=== PATIENT | male | born 1970 | race Caucasian/White ===

== ENCOUNTER → 2019-07-28 | Outpatient (CLI) | payer BC | END | disposition home or self-care (01) | LOC: LABWHC1 08:35 | PROVIDERS: ATTEND Surgery | DX: Z11.59 Encounter for screening for other viral diseases (principal) ==

== ENCOUNTER 2019-07-31 06:44 | Day surgery (SDC) | payer BC ==
[2019-07-29 12:25] VITALS: BMI 36.6
[~2019-07-31 06:44] MED LIST: LACTATED RINGERS 1,000 ML IV SCH
[2019-07-31 06:59] VITALS: TEMP 97.8
[2019-07-31] MEDS ORDERED: LIDOCAINE 1% (10MG/ML) FOR IV START INTRADERMA ONE (07:00)
[2019-07-31] MEDS ORDERED: LACTATED RINGERS 1,000 ML IV ONE (07:00)
[2019-07-31 07:07] LABS: Glucose,Whole Blood 91 mg/dL (75-99)
[2019-07-31] MEDS ORDERED: PROPOFOL 10 MG/ML 20 ML VIAL IV ONE (07:44)
--- NOTE | 2019-07-31 07:51 | P.GSHP ---
History of Present Illness H&P Date: 07/31/19 Chief Complaint: Screening colonoscopy This 49-year-old male who presents today for screening colonoscopy. Patient has never had a colonoscopy before. Past Medical History Past Medical History: Diabetes Mellitus, Hyperlipidemia, Hypertension, Skin Disorder Additional Past Medical History / Comment(s): PSOROISIS History of Any Multi-Drug Resistant Organisms: None Reported Past Surgical History: Orthopedic Surgery Additional Past Surgical History / Comment(s): left shoulder surgery, ear surgery Past Anesthesia/Blood Transfusion Reactions: No Reported Reaction Smoking Status: Current every day smoker - Past Family History Mother Family Medical History: Cancer Medications and Allergies Home Medications Medication Instructions Recorded Confirmed Type Lisinopril [Zestril] 10 mg PO QAM 02/03/15 07/29/19 History Levothyroxine Sodium [Synthroid] 50 mcg PO DAILY 06/26/17 07/29/19 History metFORMIN HCL ER [Glucophage Xr] 500 mg PO AC-SUPPER 06/26/17 07/29/19 History Atorvastatin [Lipitor] 20 mg PO HS 07/29/19 07/29/19 History Betamethasone Dipropionate 1 applic TOPICAL DAILY 07/29/19 07/29/19 History [Betamethasone Dipropionate 0.05%] Fenofibrate Nanocrystallized 145 mg PO DAILY 07/29/19 07/29/19 History [Fenofibrate] Allergies Allergy/AdvReac Type Severity Reaction Status Date / Time amoxicillin trihydrate Allergy Rash/Hives Verified 07/29/19 12:13 [From Augmentin] potassium clavulanate Allergy Rash/Hives Verified 07/29/19 12:13 [From Augmentin] Surgical - Exam Vital Signs Temp Pulse Resp BP Pulse Ox 97.8 F 62 18 133/71 97 07/31/19 06:58 07/31/19 06:58 07/31/19 06:58 07/31/19 06:58 07/31/19 06:58 - General well developed, well nourished, no distress - Eyes PERRL - ENT normal pinna - Neck no masses - Respiratory normal expansion - Cardiovascular Rhythm: regular - Abdomen Abdomen: soft, non tender Assessment and Plan Assessment: We'll perform screening colonoscopy.
--- NOTE | 2019-07-31 08:07 | P.OP ---
Date of Procedure: 07/31/19 Preoperative Diagnosis: Screening colonoscopy Postoperative Diagnosis: Right colon polyp, rectal polyp Internal and external hemorrhoids Procedure(s) Performed: Colonoscopy Anesthesia: MAC Surgeon: Roger Guidry Pathology: other (Colon polyps) Condition: stable Disposition: PACU Description of Procedure: The patient's placed on the endoscopy table in the lateral position. He received IV sedation. Digital rectal exam was performed which revealed no abnormalities. The clot scope was then placed patient anus and passed throughout the entire colon. The ileocecal valve was seen. The cecum appeared normal. In the ascending colon there was a polyp seen this removed with the snare. The remainder the ascending colon transverse colon and descending colon appeared normal. The sigmoid colon was normal. In the rectum another polyp was seen this removed with a snare. Another sessile polyp was removed the old forcep. Scope was withdrawn and there a few internal and external hemorrhoids noted. Scope was withdrawn for patient..
[2019-07-31 08:11] VITALS: RESP 16
[2019-07-31 08:21] LABS: Glucose,Whole Blood 95 mg/dL (75-99)
[2019-07-31 08:41] VITALS: BP 132/88; PULSE 77
== END 2019-07-31 08:55 | disposition home or self-care (01) ==
LOC: ORWHC2ENDO 06:44
PROVIDERS: ATTEND Surgery
DX: Z12.11 Encounter for screening for malignant neoplasm of colon (principal); D12.2 Benign neoplasm of ascending colon; D12.8 Benign neoplasm of rectum; K64.4 Residual hemorrhoidal skin tags; K64.8 Other hemorrhoids; I10 Essential (primary) hypertension; E11.9 Type 2 diabetes mellitus without complications; E78.5 Hyperlipidemia, unspecified; L40.9 Psoriasis, unspecified; F17.200 Nicotine dependence, unspecified, uncomplicated; Z88.0 Allergy status to penicillin; Z79.890 Hormone replacement therapy; Z79.84 Long term (current) use of oral hypoglycemic drugs; Z79.899 Other long term (current) drug therapy; Z98.890 Other specified postprocedural states; Z80.9 Family history of malignant neoplasm, unspecified
CPT/HCPCS: 45385; 45380; 88305; J2704

== ENCOUNTER 2020-10-27 07:40 | Day surgery (SDC) | payer BC ==
[2020-10-25 13:38] VITALS: BMI 38.0
[~2020-10-27 07:40] MED LIST changes: +LIDOCAINE 1% (10MG/ML) FOR IV START INTRADERMA PRN; +MIDAZOLAM 2 MG/2 ML VIAL IV PRN
[2020-10-27 08:08] VITALS: TEMP 96.8
[2020-10-27 08:09] LABS: Glucose,Whole Blood 100 mg/dL (75-99)
[2020-10-27] MEDS ORDERED: PROPOFOL 10 MG/ML 20 ML VIAL IV ONE (08:41)
--- NOTE | 2020-10-27 08:45 | P.GSHP ---
History of Present Illness H&P Date: 10/27/20 Chief Complaint: History of colon polyps This is a 50-year-old male who is previous history of colon polyps. Patient rents today for repeat colonoscopy. Patient denies any significant GI complaints. Past Medical History Past Medical History: Diabetes Mellitus, Hyperlipidemia, Hypertension Additional Past Medical History / Comment(s): psoriasis History of Any Multi-Drug Resistant Organisms: None Reported Past Surgical History: Orthopedic Surgery Additional Past Surgical History / Comment(s): left shoulder surgery, ear surgery,colonoscopy Past Anesthesia/Blood Transfusion Reactions: No Reported Reaction Smoking Status: Current every day smoker - Past Family History Mother Family Medical History: Cancer Medications and Allergies Home Medications Medication Instructions Recorded Confirmed Type Lisinopril [Zestril] 10 mg PO QAM 02/03/15 10/27/20 History Levothyroxine Sodium [Synthroid] 50 mcg PO QAM 06/26/17 10/27/20 History metFORMIN HCL ER [Glucophage XR] 500 mg PO AC-SUPPER 06/26/17 10/27/20 History Atorvastatin [Lipitor] 20 mg PO HS 07/29/19 10/27/20 History Betamethasone Dipropionate 1 applic TOPICAL DAILY PRN 07/29/19 10/27/20 History [Betamethasone Dipropionate 0.05%] Fenofibrate Nanocrystallized 145 mg PO DAILY 07/29/19 10/27/20 History [Fenofibrate] Allergies Allergy/AdvReac Type Severity Reaction Status Date / Time No Known Allergies Allergy Verified 10/27/20 07:54 Surgical - Exam Vital Signs Temp Pulse Resp BP Pulse Ox 96.8 F L 67 16 130/78 96 10/27/20 08:02 10/27/20 08:02 10/27/20 08:02 10/27/20 08:02 10/27/20 08:02 - General well developed, well nourished, no distress - Eyes PERRL - ENT normal pinna - Neck no masses - Respiratory normal expansion - Cardiovascular Rhythm: regular - Abdomen Abdomen: soft, non tender Results - Labs Abnormal Lab Results - Last 24 Hours (Table) 10/27/20 Range/Units 08:03 POC Glucose (mg/dL) 100 H (75-99) mg/dL Assessment and Plan Assessment: History of colon polyps. We'll perform colonoscopy.
--- NOTE | 2020-10-27 09:01 | P.OP ---
Date of Procedure: 10/27/20 Preoperative Diagnosis: History of colon polyps Postoperative Diagnosis: Transverse colon and right colon polyp Procedure(s) Performed: Colonoscopy Anesthesia: MAC Surgeon: Roger Guidry Pathology: other (Transverse and right colon polyp) Condition: stable Disposition: PACU Description of Procedure: The patient's placed on the endoscopy table in the lateral position. She received IV sedation. Digital rectal exam was performed which revealed no abnormalities. The flexible colonoscope was then placed patient anus and passed throughout the entire colon. The ileocecal valve was visualized. The cecum appeared normal. In the right colon there was a sessile polyp was removed with a cold forcep. Scope was withdrawn remainder the ascending colon year normal. In the transverse colon another sessile polyp was removed forcep. Scope withdrawn the remainder transverse colon, descending colon and sigmoid colon appeared normal. Scope was brought back the rectum this appeared normal. Scope was withdrawn for patient.
[2020-10-27 09:21] VITALS: BP 109/70; PULSE 60; RESP 20
== END 2020-10-27 09:51 | disposition home or self-care (01) ==
LOC: ORWHC2ENDO 07:40
PROVIDERS: ATTEND Surgery
DX: Z12.11 Encounter for screening for malignant neoplasm of colon (principal); Z86.010 Personal history of colon polyps; D12.2 Benign neoplasm of ascending colon; D12.3 Benign neoplasm of transverse colon; I10 Essential (primary) hypertension; E78.5 Hyperlipidemia, unspecified; F17.210 Nicotine dependence, cigarettes, uncomplicated; E11.9 Type 2 diabetes mellitus without complications; L40.9 Psoriasis, unspecified; Z79.899 Other long term (current) drug therapy
CPT/HCPCS: 88305; 45380; J2704

== ENCOUNTER → 2023-06-21 | Outpatient (CLI) | payer BC ==
[2023-06-21 19:22] LABS: Hepatitis B Surface AB- Quant 3.5 mIU/mL
[2023-06-21 19:37] LABS: Hepatitis B Surface Antigen Nonreactive (Nonreactive); Hepatitis C IgG Antibody Nonreactive (Nonreactive)
== END | disposition home or self-care (01) ==
LOC: LABWHC1 16:12
PROVIDERS: ATTEND Dermatology MOHS-Micrographic Surgery
DX: L40.0 Psoriasis vulgaris (principal); Z79.899 Other long term (current) drug therapy
CPT/HCPCS: 36415; 84450; 84460; 84478; 86480; 86704; 86706; 86803; 87340

== ENCOUNTER → 2023-08-20 | Outpatient (CLI) | payer BC ==
[2023-08-20 15:35] LABS: Hepatitis B Surface AB- Quant 3.5 mIU/mL
[2023-08-20 15:38] LABS: Hepatitis B Surface Antigen Nonreactive (Nonreactive); Hepatitis C IgG Antibody Nonreactive (Nonreactive)
== END | disposition home or self-care (01) ==
LOC: LABWHC1 08:54
PROVIDERS: ATTEND Nurse Practitioner Family
DX: L40.0 Psoriasis vulgaris (principal); Z79.899 Other long term (current) drug therapy
CPT/HCPCS: 36415; 84450; 84460; 84478; 86480; 86704; 86706; 86803; 87340

== ENCOUNTER 2023-11-25 12:20 | Day surgery (SDC) | payer BC ==
[~2023-11-25 12:20] MED LIST changes: -LACTATED RINGERS 1,000 ML IV SCH; -MIDAZOLAM 2 MG/2 ML VIAL IV PRN
[2023-11-25 12:45] VITALS: TEMP 97.5
[2023-11-25 13:00] LABS: Glucose,Whole Blood 115 mg/dL (70-110)
[2023-11-25] MEDS: LACTATED RINGERS 1,000 ML IV SCH (13:00)
[2023-11-25] MEDS: IV FLUID CONTINUATION 1,000 ML IV ONE (13:01)
[2023-11-25] MEDS ORDERED: PROPOFOL 10 MG/ML 20 ML VIAL IV ONE (14:18)
--- NOTE | 2023-11-25 14:44 | P.GSHP ---
History of Present Illness H&P Date: 11/25/23 Chief Complaint: Colon polyps Is a 53 male with history of colon polyps. Patient notes today for colonoscopy. Past Medical History Past Medical History: Diabetes Mellitus, Hyperlipidemia, Hypertension, Skin Disorder Additional Past Medical History / Comment(s): psoriasis, seasonal allergies. History of Any Multi-Drug Resistant Organisms: None Reported Past Surgical History: Orthopedic Surgery Additional Past Surgical History / Comment(s): left shoulder surgery, ear surgery,colonoscopy Past Anesthesia/Blood Transfusion Reactions: No Reported Reaction Smoking Status: Former smoker - Past Family History Mother Family Medical History: Cancer Medications and Allergies Home Medications Medication Instructions Recorded Confirmed Type lisinopriL [Zestril] 10 mg PO QAM 02/03/15 11/25/23 History Levothyroxine Sodium [Synthroid] 50 mcg PO QAM 06/26/17 11/25/23 History metFORMIN HCL ER [Glucophage XR] 500 mg PO BID 06/26/17 11/25/23 History Atorvastatin [Lipitor] 20 mg PO HS 07/29/19 11/25/23 History Betamethasone Dipropionate 1 applic TOPICAL DAILY PRN 07/29/19 11/25/23 History [Betamethasone Dipropionate 0.05%] Fenofibrate Nanocrystallized 145 mg PO DAILY 07/29/19 11/25/23 History [Fenofibrate] Allergies Allergy/AdvReac Type Severity Reaction Status Date / Time No Known Allergies Allergy Verified 11/25/23 12:40 Surgical - Exam Vital Signs Temp Pulse Resp BP Pulse Ox 97.5 F L 59 L 18 101/64 95 11/25/23 12:42 11/25/23 12:42 11/25/23 12:42 11/25/23 12:42 11/25/23 12:42 - General well developed, well nourished, no distress - Eyes PERRL - ENT normal pinna - Neck no masses - Respiratory normal expansion - Cardiovascular Rhythm: regular - Abdomen Abdomen: soft, non tender Results - Labs Abnormal Lab Results - Last 24 Hours (Table) 11/25/23 Range/Units 12:57 POC Glucose (mg/dL) 115 H (70-110) mg/dL Assessment and Plan Assessment: History colon polyps. Will perform colonoscopy.
--- NOTE | 2023-11-25 14:46 | P.OP ---
Date of Procedure: 11/25/23 Preoperative Diagnosis: History of colon polyps Postoperative Diagnosis: Rectal polyp Procedure(s) Performed: Colonoscopy Anesthesia: MAC Surgeon: Roger Guidry Pathology: other (Rectal polyp) Condition: stable Disposition: PACU Description of Procedure: The patient was placed on the endoscopy table in the lateral position. He received IV sedation. Digital rectal exams performed. This revealed no abnormalities. Flexible colonoscope was then placed patient anus passed throughout the entire colon. The ileocecal valve was visualized. The cecum, ascending and transverse colon appeared normal. In the descending sigmoid colon a few scattered diverticuli. Scope was gerd back into the rectum and a punctate polyp was seen. This removed with the snare. The scope withdrawn from the patient.
[2023-11-25 14:58] VITALS: BP 112/78; PULSE 78; RESP 18
== END 2023-11-25 15:14 | disposition home or self-care (01) ==
LOC: ORWHC2ENDO 12:20
PROVIDERS: ATTEND Surgery
DX: K63.5 Polyp of colon
CPT/HCPCS: 45380; 45385; 88305

== ENCOUNTER → 2024-08-13 | Outpatient (CLI) | payer BC | END | disposition home or self-care (01) | LOC: LABWHC1 15:59 | PROVIDERS: ATTEND Dermatology MOHS-Micrographic Surgery | DX: L40.0 Psoriasis vulgaris (principal); Z79.899 Other long term (current) drug therapy | CPT/HCPCS: 36415; 86480 ==